=== PATIENT | female | born 1995 | race Caucasian/White ===

== ENCOUNTER 2021-03-01 22:06 | Emergency (ER) | payer BC, SELFPAY ==
[2021-03-01 22:15] VITALS: BP 130/83; PULSE 95; RESP 14; TEMP 36.6; O2SAT 98
--- NOTE | 2021-03-01 22:33 | PC.NURSE ---
Per STELLAP Marcia verbal order read-back, order D Dimer, BMP, CBC, and PT PTT INR
[2021-03-01 22:36] LABS: Basophils Percent Auto 0.2 % (0.2-1.2); Eosinophils Percent Auto 0.5 % (0-4.4); Hematocrit 36.2 % (37.0-47.0); Hemoglobin 12.5 g/dL (12.0-15.0); Immature Granulocyte Absolute 0.01 K/mm3 (0.00-0.031); Immature Granulocyte Percent A 0.2 % (0-0.5); Lymphocytes Absolute Auto 1.56 K/mm3 (0.9-3.2); Lymphocytes Percent Auto 36.1 % (18.3-44.2); Mean Corpuscular HGB Conc 34.5 g/dl (32-36); Mean Corpuscular Hemoglobin 31.6 pg (26-34); Mean Corpuscular Volume 91.4 fl (80-100); Mean Platelet Volume 9.4 fl (7.4-10.4); Monocytes Absolute Auto 0.2 K/mm3 (0.1-0.6); Monocytes Percent Auto 5.6 % (2.6-8.5); Neutrophils Absolute Auto 2.5 K/mm3 (1.3-6.7); Neutrophils Percent Auto 57.4 % (45.5-73.1); Platelet Count Result 238 k/mm3 (150-375); Red Blood Count 3.96 M/mm3 (4.2-5.4); Red Cell Distribution Width 11.8 % (11.5-14.5); White Blood Count 4.3 K/mm3 (4.5-10.0)
[2021-03-01 22:46] LABS: Anion Gap 5 mmol/L (8-16); Blood Urea Nitrogen 8 mg/dL (7-17); Calcium 9.4 mg/dL (8.4-10.2); Carbon Dioxide 32 mmol/L (22-30); Chloride 102 mmol/L (98-107); Estimated CRCL calculation 112 ml/min; Estimated Glomerular Filt Rate > 60; Glucose 103 mg/dL (65-105); Potassium 3.5 mmol/L (3.4-5.0); Sodium 139 mmol/L (137-145)
[2021-03-01 22:48] LABS: INR 0.9; Prothrombin Time 13.2 Seconds (11.1-14.7)
[2021-03-01 22:49] LABS: Partial Thromboplastin Time 33.9 SECONDS (22.3-36.8)
[2021-03-01 23:04] LABS: D Dimer 0.22 ug/mL (<0.48)
--- NOTE | 2021-03-02 00:04 | ED.GENADULT ---
HPI - General Adult General Chief complaint: Extremity Problem,Nontraumatic Stated complaint: blood clot in leg? Time Seen by Provider: 03/01/21 23:59 Source: patient History of Present Illness HPI narrative: Patient is a 25 y/o female complaining of left leg pain starting 3 days ago. She states that her pain is mostly located behind left knee. She describes her pain as aching and rates it as 3/10. There is no alleviating or exacerbating factor. Of note, she had J&J COVID vaccine 3 days ago. She is also on control pills. She is concerned about blood clot. Related Data Allergies Allergy/AdvReac Type Severity Reaction Status Date / Time Crab Allergy Unknown Vomiting Uncoded 12/12/18 16:37 Review of Systems Constitutional: Constitutional: Denies chills, Denies fever(s), Denies headache(s) and Denies weakness Eyes: Eyes: Denies blurry vision ENT: Denies headache(s) and Denies neck pain Cardiovascular: Cardiovascular: Denies chest pain and Denies dyspnea Respiratory: Respiratory: Denies cough and Denies dyspnea Gastrointestinal: Gastrointestinal: Denies abdominal pain, Denies diarrhea, Denies nausea and Denies vomiting Genitourinary: Genitourinary: Denies hematuria and Denies dysuria Musculoskeletal: Musculoskeletal: Denies back pain, Denies neck pain and Reports other (left leg pain) Neurologic: Denies headache(s) and Denies weakness Exam Const: General: no acute distress and well developed Orientation/consciousness: oriented to person, oriented to place, oriented to time and patient oriented x3 HENMT: Head: normocephalic Ears: external ears normal General nose exam: Normal external nose present Eyes: General: appearance normal, both eyes and all related structures Conjunctivae: conjunctivae normal Neck: Neck: normal visual inspection and full ROM Chest: Chest palpation & inspection: normal inspection of the chest and no tenderness Resp: Effort & Inspection: normal respiratory effort Auscultation: clear to auscultation bilaterally Cardio: Rate: regular rate Rhythm: regular rhythm GI: GI Palp: No abdominal tenderness and Yes Soft to palpation Skin: General skin exam: normal color and turgor normal Neuro: General: oriented to person, oriented to place, oriented to time and patient oriented x3 Cognition (Neuro): normal cognition Extrem: General: normal to inspection, full ROM and no pedal edema Psych: Appearance: grossly normal Mental Status: mental status grossly normal Affect: normal affect Course Reevaluation(s) Reevaluation #1: Instructed patient to return at 07:00 AM for venous doppler. Date: 03/02/21 Time: 00:07 Vital Signs Vital signs: Vital Signs Temperature 36.6 C 03/01/21 22:15 Pulse Rate 95 03/01/21 22:15 Respiratory Rate 14 03/01/21 22:15 Blood Pressure 130/83 03/01/21 22:15 Pulse Oximetry 98 03/01/21 22:15 Temperature 36.6 C 03/01/21 22:15 Pulse Rate 95 03/01/21 22:15 Respiratory Rate 14 03/01/21 22:15 Blood Pressure 130/83 03/01/21 22:15 Pulse Oximetry 98 03/01/21 22:15 Medical Decision Making Vital Signs Vital Signs: Vital Signs Temperature 36.6 C 03/01/21 22:15 Pulse Rate 95 03/01/21 22:15 Respiratory Rate 14 03/01/21 22:15 Blood Pressure 130/83 03/01/21 22:15 Pulse Oximetry 98 03/01/21 22:15 Temperature 36.6 C 03/01/21 22:15 Pulse Rate 95 03/01/21 22:15 Respiratory Rate 14 03/01/21 22:15 Blood Pressure 130/83 03/01/21 22:15 Pulse Oximetry 98 03/01/21 22:15 Lab Data Result diagrams: 03/01/21 22:29 03/01/21 22:29 Labs: Lab Results 03/01/21 03/01/21 03/01/21 Range/Units 22:29 22:29 22:29 WBC 4.3 L (4.5-10.0) K/mm3 RBC 3.96 L (4.2-5.4) M/mm3 Hgb 12.5 (12.0-15.0) g/dL Hct 36.2 L (37.0-47.0) % MCV 91.4 (80-100) fl MCH 31.6 (26-34) pg MCHC 34.5 (32-36) g/dl RDW 11.8 (11.5-14.5) % Plt Count 238 (150-375) k/mm
[2021-03-02 00:36] VITALS: BP 106/73; PULSE 79; RESP 15
== END 2021-03-02 00:46 | disposition home or self-care (01) ==
LOC: ANHED 03-02 00:22
PROVIDERS: Emergency Medicine; Emergency Provider Emergency Medicine
DX: M79.605 Pain in left leg (principal)
CPT/HCPCS: 36415; 80048; 85025; 85380; 85610; 85730; 99283